=== PATIENT | female | born 1970 | race Caucasian/White ===

== ENCOUNTER 2016-05-19 13:31 | Emergency (ER) | payer MEDICAID ==
[~2016-05-19] VITALS: Ht 160 cm; Wt 70.3 kg
--- NOTE | 2016-05-19 13:40 | NUR ---
Patient to ER 08 bed to gown for evaluation. Side rails up.
[2016-05-19 13:41] VITALS: BP_SYST 129
--- NOTE | 2016-05-19 13:42 | NUR ---
Pt brought by self, A&Ox4, pt c/o rash on L forehead for 3 months and headache, skin pink and warm, cap refill <3, VSS, pt states she feels the rash is moving and rash has wings, intact vision, skin pink and warm, cap refill <3.
--- NOTE | 2016-05-19 13:42 | NUR ---
Dr Riggs at bedside examining patient
--- NOTE | 2016-05-19 14:48 | NUR ---
Patient given written and verbal discharge instructions and verbalizes understanding. ER MD discussed with patient the results and treatment provided. Given copies of tests performed in ER. Patient in stable condition. ID arm band removed. Rx of lotrisone, doxy, amox, calacyclovir given. Patient educated on pain management and to follow up with PMD. Pain Scale 0/10 Opportunity for questions provided and answered.
== END 2016-05-19 14:48 | disposition home or self-care (01) ==
LOC: SED 13:31
DX: B02.9 Zoster without complications (principal); R03.0 Elevated blood-pressure reading, without diagnosis of hypertension
CPT/HCPCS: 99283